=== PATIENT | male | born 1950 | race African-American/Black ===

== ENCOUNTER 2024-12-14 08:44 | Outpatient (CLI) | payer OTHER, SELFPAY ==
--- NOTE | ~2024-12-14 | PE_ITS ---
EXAMINATION: PET skull to mid thigh DATE: 12/14/2024 10:58 INDICATION: Myeloma TECHNIQUE: Blood glucose level was 91 mg/dL. 10.061 mCi of 18-fluorodeoxyglucose (18-FDG) was adminis tered i.v. Low dose computed tomography (CT) images were acquired from the base of the brain to the p roximal thighs for attenuation correction and anatomic localization. Positron emission tomography (PE T) images were acquired in the same distribution beginning 63 minutes after injection. Images includi ng fused PET/CT images were reconstructed in axial, coronal, and sagittal planes. Automated exposure control technique was employed. The dose-length product was 1135.63mGy-cm. COMPARISON: None FINDINGS: Head/neck: There is symmetric increased activity in the oral cavity, palatine tonsils, parotid glands, submandi bular glands, laryngeal muscles and ocular muscles without CT correlate, likely physiologic. No patho logically enlarged cervical lymphadenopathy or suspicious foci of increased FDG uptake in the visuali zed head or neck. Chest: Mild dependent atelectasis in the bilateral lower lobes. No suspicious pulmonary nodules, pneumonia, pulmonary edema or pleural effusion. Mild cardiomegaly. No pericardial effusion. Thoracic aorta is no rmal in caliber. No pathologically enlarged thoracic lymphadenopathy. Abdomen/pelvis/proximal thighs: Physiologic renal accumulation and excretion of FDG activity in the kidneys, bladder and along portio ns of ureters. Couple low-attenuation left renal cysts with associated photopenic defects,, each mili uring approximately 2.5-2.7 cm. There is diffuse wall thickening of the bladder. Normal degree and he terogenous pattern of increased uptake throughout the liver without radiologic correlate or dominant FDG avid lesion. The gallbladder, pancreas, spleen and bilateral adrenal glands are normal. Mild upta ke scattered throughout the bowels without radiologic correlate, also likely physiologic. No other ab normal foci of increased FDG uptake or pathologically enlarged lymphadenopathy in the abdomen, pelvis or proximal thighs. Musculoskeletal: L4-S1 instrumented anterior and posterior spinal fusion with interbody bone graft cages and bilateral vertical shahriar and pedicle screw fixation at both levels. There is no abnormal FDG uptake associated w ith a mixed lytic and sclerotic lesions at the T12, L2 and L4 vertebral bodies, at the junction of th e left acetabulum and superior pubic ramus and at the mid left humeral diaphysis. Slightly more dista lly there is a small focus of increased soft tissue uptake along the distal left triceps muscle.. The re is diffuse synovial activity about the left elbow. There are multiple small radiopaque foreign bod ies in the volar soft tissues at the elbow. IMPRESSION: 1. No abnormal FDG uptake associated with multiple lytic and sclerotic bone lesions in the lumbar and lower thoracic spine, left periacetabular region and mid left humeral diaphysis which could represen t metastatic prostate cancer or treated myeloma. The sensitivity for prostate cancer can be low with standard PET and would consider either correlation with prior outside imaging to assess for interval change or PSMA PET which has a higher sensitivity for prostate cancer. 2. Nonspecific small focus of increased FDG uptake along the distal triceps muscle belly which is not included on the CT images. 3. Additional nonspecific diffuse increased synovial activity at the left elbow which is also not inc luded within the field of imaging on CT. Consider further evaluation with pre and postcontrast MRI wa s of the left elbow and distal upper arm to further evaluate both this and the focus of triceps activ ity. Reviewed, dictated and finalized at location A. [facility] IMPRESSION: 1. No abnormal FDG uptake associated with multiple lytic and sclerotic bone les ions in the lumbar and lower thoracic spine, left periacetabular region and mid left humeral diaphysis which could represent metastatic prostate cancer or josé ated myeloma. The sensitivity for prostate cancer can be low with standard PET and would consider either correlation with prior outside imaging to assess for interval change or PSMA PET which has a higher sensitivity for prostate cancer. 2. Nonspecific small focus of increased FDG uptake along the distal triceps mus ebony belly which is not included on the CT images. 3. Additional nonspecific diffuse increased synovial activity at the left elbow which is also not included within the field of imaging on CT. Consider further evaluation with pre and postcontrast MRI was of the left elbow and distal uppe r arm to further evaluate both this and the focus of triceps activity.
--- OUTSIDE RECORDS SUMMARY | 2024-12-14 09:14 | XMS_ITS | Clinical Summary ---
Author Organization [facility] Address [address] [place] [id number] Care Team Providers Care Nursery Attendant Name Role Phone None, Provider Primary Care Provider Unavaila ble Encounters Date Type Department Care Team Description 11/17/2024 Telephone [facility], [address] [phone] Vilma, ProviderMD Schedule Test 11/16/2024 Orders Only [facility], [address] [phone] Aaliyah Lara PA 09/25/2024 2:06 PM WELDER EXPLOSION - 09/25/2024 11:59 PM WELDER EXPLOSION Hospital Encounter [facility] [address] [place] [id number] George Moore MD Discharge Disposition: Home or Self Care (Routine Discharge) 09/25/2024 Orders Only [facility] [address] [place] [place], [place] [id number] George Moore MD from Last 3 Months Social History Tobacco Use Types Packs/Day Years Used Date Smoking Tobacco: Never Assessed Sex and Gender Information Value Date Recorded Sex Assigned at Not on file Legal Sex Male 2:04 PM WELDER EXPLOSION Gender Identity Not on file Sexual Orientation Not on file Plan of Treatment Upcoming Encounters Date Type Department Care Team (Late st Contact Info) Description 01/17/2025 9:00 AM CDT Appointment [facility] [address] [place] [address] Aaliyah Lara PA [address] [place] [address] 02/08/2025 1:15 PM CDT Office Visit [facility] [place] [address] Christiano Mckoy MD [address] [address] Health Maintenance Due Date Last Done Comments Colorectal Cancer Screening Colonoscopy (10 Years) 1950 Pneumococcal Vaccine: 65+ Ye ars (1 of 2 - PCV) 1957 Hepatitis C 1969 DTaP, Tdap and Td Vaccines ( 1 - Tdap) 1970 Zoster Vaccines (1 of 2) 2001 RSV Immunization or 60+ Years (1 - Risk 60-74 years 1-dose series) 2011 COVID-19 Vaccine (2023-2 5 season) 2024 Influenza Adult (#1) 2024 Meningococcal B Vaccine Aged Out No l onger eligible based on patient's age to complete this topic Meningococcal Vaccine Aged Out No sandra vinod eligible based on patient's age to complete this topic RSV Immunizations Under 20 Months Aged Out No longer eligible based on patient's age to complete this topic Procedures Procedure Name Priority Date/Time Associated Diagnosis Comments MISCELLANEOUS LAB TEST Routine 4 1:45 PM WELDER EXPLOSION MISCELLANEOUS LAB TEST Routine 4 1:45 PM WELDER EXPLOSION CBC W/DIFF AUTOMATED Routine 09/25/2024 1:45 PM WELDER EXPLOSION Elevated serum immunoglobulin free light chain level Prostate cancer (CMS/HCC HHS/HCC) COMPREHENSIVE METABOLIC PANEL Routine 09/25/2024 1:45 PM WELDER EXPLOSION Elevated serum immunoglobulin free light chain level Prostate cancer (CMS/HCC HHS/HCC) LDH, LACTATE DEHYDROGENASE Routine 09/25/2024 1:45 PM WELDER EXPLOSION Elevated serum immunoglobulin free light chain level Prostate cancer (CMS/HCC HHS/HCC) PROSTATE SPECIFIC ANTIGEN,TOTAL Routine 09/25/2024 1:45 PM WELDER EXPLOSION Elevated serum immunoglobulin free light chain level Prostate cancer (CMS/HCC HHS/HCC) PROTEIN, ELECTROPHORESIS Routine 09/25/2024 1:45 PM WELDER EXPLOSION Elevated serum immunoglobulin free light chain level Prostate cancer (CMS/HCC HHS/HCC) KAPPA LAMBDA FREE RATIO (QST) Routine 09/25/2024 1:45 PM WELDER EXPLOSION Elevated serum immunoglobulin free light chain level Prostate cancer (CMS/HCC HHS/HCC) BETA 2 MICROGLOBULIN, SERUM (QST) Routine 09/25/2024 1:45 PM WELDER EXPLOSION Elevated serum immunoglobulin free light chain level Prostate cancer (CMS/HCC HHS/HCC) IMMUNOGLOBULINS IGA IGG IGM Routine 09/25/2024 1:45 PM WELDER EXPLOSION Elevated serum immunoglobulin free light chain level Prostate cancer (CMS/HCC HHS/HCC) PROTEIN ELECTROPHORESIS URINE RANDOM Routine 09/25/2024 1:45 PM WELDER EXPLOSION Elevated serum immunoglobulin free light chain level Prostate cancer (CMS/HCC HHS/HCC) from Last 3 Months Results * (ABNORMAL) KAPPA LAMBDA FREE RATIO (QST) (09/25/2024 1:45 PM WELDER EXPLOSION) KAPPA FREE LIGHT CHAIN 104.0(H) 3.3 - 19.4 mg/L 09/27/2024 11:51 PM WELDER EXPLOSION [facility] XAVIER-CHANTI LLY LAMBDA FREE LIGHT CHAIN 15.0 5.7 - 26.3 mg/L 09/27/2024 11:51 PM WELDER EXPLOSION [facility] L[facility] KAPPA/LAMBDA FREE 6.93(H) 0.26 - 1.65 09/27/2024 11:51 PM WELDER EXPLOSION [facility] Comment: Free kappa/lambda ratio in serum of normal individuals is 0.26-1.65. Excess production of free kappa or lambda chains can alter the ratio. Monoclonal free light chains are found in the serum of patients with multiple myeloma, Waldenstrom's macroglobulinemia, mu-heavy chain disease, primary amyloidosis, light chain deposition disease, monoclonal gammopathy of undetermined significance, and lymphoproliferative disorders. Measurement of free light chain concen- tration in serum is useful for diagnosis, prognosis, monitoring disease activity and following response to therapy of these disorders. Test Performed by [employer], [employer] [facility], [address] [place] [address] Eric Stewart M.D., Ph.D., Director of Laboratories , [facility] [id number] 09/25/2024 1:45 PM WELDER EXPLOSION us George Moore MD LABORATORY Final Result Performing Organization Address City/[facility]/ZIP Co de Phone Number [employer] [place] [id number] [place], [place] , [place] [phone] * PROTEIN ELECTROPHORESIS URINE RANDOM (09/25/2024 1:45 PM WELDER EXPLOSION) Pathologist [facility] PROTEIN URINE TOTAL RANDOM 11.8 <12.0 MG/DL 09/27/2024 1:48 PM WELDER EXPLOSION [facility] INTERPRETATION THIS URINE PEP WAS INTERPRETED BY 09/29/2024 8:30 AM WELDER EXPLOSION [facility] Comment: DR YONATHAN DAVALOS MD NO SIGNIFICANT RANDOM PROTEINURIA. THERE IS A TRACE OF ALBUMIN ON ELECTROPHORESIS. BENCE VELEZ PROTEIN IS NOT DETECTED. URINE SPECIMEN / Unknown 09/25/2024 1:45 PM WELDER EXPLOSION us George Moore MD URINE ORDERABLES Final Result [facility] [address] [place] [address], [place] [phone] [id number] * MISCELLANEOUS LAB TEST (09/25/2024 1:45 PM WELDER EXPLOSION) Only the most recent of2 resultswithin the time period is included. Pathologist [facility] TEST NAME: IMMUNOFIXATION URINE TEST 213 09/27/2024 3:42 PM WELDER EXPLOSION [facility] SPECIMEN TYPE URINE FROZEN 3:42 PM WELDER EXPLOSION [facility] TEST RESULT: Flexitest 1 10/03/2024 6:45 PM WELDER EXPLOSION [employer] [facility] Comment: Flexitest 1 Immunofixation, Urine NAVARRO Interpretation * Abnormal free kappa light chains are present. Test Performed by [employer], [employer] [facility], [address] [place] [address] Eric Stewart M.D., Ph.D., Director of Laboratories , [facility] [id number] 09/25/2024 1:45 PM WELDER EXPLOSION George Moore MD LABORATORY Final Result Performing Organization Address City/[facility]/ZIP Co de Phone Number [employer] [address] [address], [place] [phone] [facility] [address] [place] [id number], [place] * PROSTATE SPECIFIC ANTIGEN,TOTAL (09/25/2024 1:45 PM WELDER EXPLOSION) PSA 0.18 <4.00 NG/ML 09/25/2024 8:05 PM WELDER EXPLOSION [facility] Comment: Test was performed using the Siemens method. Results obtained with other assay methods or kits cannot be used interchangeably with results obtained by the Siemens method. 09/25/2024 1:45 PM WELDER EXPLOSION George Moore MD LABORATORY Final Result [facility] [address] [place] [address], [place] [phone] * (ABNORMAL) COMPREHENSIVE METABOLIC PANEL (09/25/2024 1:45 PM WELDER EXPLOSION) GLUCOSE 88 70 - 99 MG/DL 09/25/2024 3:03 PM WELDER EXPLOSION [facility] BUN 28(H) 7 - 18 MG/DL 09/25/2024 3:03 PM [facility] CREATININE S/P/B 1.55(H) 0.50 - 1.20 MG/DL 09/25/2024 3:03 PM [facility] SODIUM S/P/B 140 136 - 145 MMOL/L 09/25/2024 3:03 PM [facility] POTASSIUM S/P/B 4.2 3.5 - 5.1 MMOL/L 09/25/2024 3:03 PM [facility] CHLORIDE S/P/B 103 100 - 108 MMOL/L 09/25/2024 3:03 PM [facility] CO2 32.7(H) 21.0 - 32.0 MMOL/L 09/25/2024 3:03 PM [facility] CALCIUM S/P/B 8.8 8.5 - 10.1 MG/DL 09/25/2024 3:03 PM [facility] BILIRUBIN TOTAL S/P/B 0.5 0.2 - 1.2 MG/DL 09/25/2024 3:03 PM [facility] Comment: THIS ASSAY IS NOT RECOMMENDED FOR PATIENTS UNDERGOING TREATMENT WITH ELTROMBOPAG DUE TO THE POTENTIAL FOR FALSELY ELEVATED RESULTS. TOTAL PROTEIN S/P/B 6.9 6.4 - 8.2 G/DL 09/25/2024 3:03 PM [facility] ALBUMIN S/P/B 3.9 3.4 - 5.0 G/DL 09/25/2024 3:03 PM [facility] AST 25 15 - 37 U/L 09/25/2024 3:03 PM [facility] ALT 29 16 - 60 U/L 09/25/2024 3:03 PM [facility] ALKALINE PHOSPHATASE S/P/B 111 50 - 136 U/L 09/25/2024 3:03 PM [facility] ANION GAP 4.3(L) 5.0 - 15.0 MMOL/L 09/25/2024 3:03 PM WELDER EXPLOSION [facility] BUN CREATININE RATIO 18.1 6 - 26 09/25/2024 3:03 PM WELDER EXPLOSION [facility] A/G RATIO 1.3 1.0 - 2.5 RATIO 09/25/2024 3:03 PM WELDER EXPLOSION [facility] GFR ESTIMATE 47(L) >90 ML/MIN/1.7 3 M2 09/25/2024 3:03 PM WELDER EXPLOSION [facility] Comment: NOTE: eGFR is not calculated for patients <18 years of age. This is an estimated GFR calculation using the new CKD EPI creatinine equation without race and so does not require a correction factor for race. This estimated GFR should not be used for calculating drug doses. 09/25/2024 1:45 PM WELDER EXPLOSION us George Moore MD LABORATORY Final Result Performing Organization Address City/[facility]/ZIP Co de Phone Number [facility] [address] [place] [address], * LDH, LACTATE DEHYDROGENASE (09/25/2024 1:45 PM WELDER EXPLOSION) LDH 237 87 - 241 UNITS/L 09/25/2024 8:05 PM WELDER EXPLOSION [facility] 09/25/2024 1:45 PM WELDER EXPLOSION us George Moore MD LABORATORY Final Result Performing Organization Address City/[facility]/ZIP Co de Phone Number [facility] [address] [place] [address], [place] [phone] * (ABNORMAL) BETA 2 MICROGLOBULIN, SERUM (QST) (09/25/2024 1:45 PM WELDER EXPLOSION) BETA-2 MICROGLOBULIN 2.85(H) <=2.51 mg/L 09/28/2024 1:36 PM WELDER EXPLOSION [employer] [facility] Comment: Test Performed by Perez [facility], [employer] [facility], [address] [place], [place] Eric Stewart M.D., Ph.D., Director of Laboratories , [facility] [id number] 09/25/2024 1:45 PM WELDER EXPLOSION George Moore MD LABORATORY Final Result [facility] [address] [place], [place] , * (ABNORMAL) CBC W/DIFF AUTOMATED (09/25/2024 1:45 PM WELDER EXPLOSION) WBC 3.38(L) 4.50 - 11.00 x10'3/uL 09/25/2024 2:35 PM WELDER EXPLOSION [facility] RBC 4.68 4.50 - 5.90 x10'6/uL 09/25/2024 2:35 PM WELDER EXPLOSION [facility] HGB 13.5(L) 14.0 - 18.0 G/DL 09/25/2024 2:35 PM WELDER EXPLOSION [facility] HCT 42.5(L) 43.0 - 54.0 % 09/25/2024 2:35 PM WELDER EXPLOSION [facility] MCV 90.8 80.0 - 100.0 FL 09/25/2024 2:35 PM WELDER EXPLOSION [facility] MCH 28.8 26.0 - 34.0 PG 09/25/2024 2:35 PM WELDER EXPLOSION [facility] MCHC 31.8 31.0 - 37.0 G/DL 09/25/2024 2:35 PM WELDER EXPLOSION [facility] RDW 14.0 11.6 - 14.8 % 09/25/2024 2:35 PM WELDER EXPLOSION [facility] PLT 124(L) 130 - 400 x10'3/uL 09/25/2024 2:35 PM WELDER EXPLOSION [facility] MPV 13.0(H) 7.0 - 12.0 FL 09/25/2024 2:35 PM [facility] CBC COMMENT AUTOMATED RBC MORPHOLOGY AND PLATELET EVALUATION NORMAL 09/25/2024 2:35 PM [facility] NEUTROPHILS % 37.9(L) 40.0 - 74.0 % 09/25/2024 2:35 PM [facility] LYMPHOCYTES % 42.0 14.0 - 46.0 % 09/25/2024 2:35 PM [facility] MONOCYTES % 14.2(H) 4.0 - 13.0 % 09/25/2024 2:35 PM [facility] EOSINOPHILS 4.7 0.0 - 7.0 % 09/25/2024 2:35 PM [facility] BASOPHILS 0.9 0.0 - 3.0 % 09/25/2024 2:35 PM [facility] IMMATURE GRANS % 0.3 0.0 - 0.43 % 09/25/2024 2:35 PM [facility] NRBC % 0.0 % 09/25/2024 2:35 PM [facility] ABS. NEUTROPHILS TOTAL 1.28(L) 1.69 - 7.81 x10'3/uL 09/25/2024 2:35 PM [facility] ABS. LYMPHOCYTES 1.42 0.21 - 5.42 x10'3/uL 09/25/2024 2:35 PM [facility] ABS. MONOCYTES 0.48 0.04 - 1.37 x10'3/uL 09/25/2024 2:35 PM [facility] ABS. EOSINOPHILS 0.16 0.00 - 0.68 x10'3/uL 09/25/2024 2:35 PM [facility] ABS. BASOPHILS 0.03 0.00 - 0.08 x10'3/uL 09/25/2024 2:35 PM [facility] ABS. IMMATURE GRANULOCYTES 0.01 0.00 - 0.06 x10'3/uL 09/25/2024 2:35 PM WELDER EXPLOSION [facility] ABS. NUCLEATED RBC'S 0.00 0.00 - 0.01 x10'3/uL 09/25/2024 2:35 PM WELDER EXPLOSION [facility] 09/25/2024 1:45 PM WELDER EXPLOSION George Moore MD LABORATORY Final Result [facility] [address] [facility] [place] [address], [place] * PROTEIN, ELECTROPHORESIS (09/25/2024 1:45 PM WELDER EXPLOSION) TOTAL PROTEIN S/P/B 6.9 6.0 - 8.3 G/DL 09/27/2024 1:48 PM WELDER EXPLOSION [facility] ALBUMIN S/P/B 4.2 3.4 - 4.9 G/DL 09/27/2024 1:40 PM WELDER EXPLOSION [facility] [id number] S/P/B 0.2 0.2 - 0.4 G/DL 09/27/2024 1:40 PM WELDER EXPLOSION [facility] [id number] S/P/B 0.7 0.4 - 1.0 G/DL 09/27/2024 1:40 PM WELDER EXPLOSION [facility] BETA GLOBULIN S/P/B 0.7 0.5 - 1.2 G/DL 09/27/2024 1:40 PM WELDER EXPLOSION [facility] GAMMA GLOBULIN S/P/B 1.1 0.6 - 1.6 G/DL 09/27/2024 1:40 PM WELDER EXPLOSION [facility] ELECTROPHORESIS INTERPRETATION THIS SERUM PEP WAS INTERPRETED BY 09/29/2024 8:30 AM WELDER EXPLOSION [facility] Comment: DR YONATHAN DAVALOS MD THE TOTAL SERUM PROTEIN IS NORMAL. ELECTROPHORESIS IDENTIFIES NO QUANTITATIVE ABNORMALITIES WITHIN THE PROTEIN FRACTIONS. MONOCLONAL PROTEINS ARE NOT DETECTED. 09/25/2024 1:45 PM WELDER EXPLOSION George Moore MD LABORATORY Final Result [facility] [address] [place] [address], [place] [phone] * IMMUNOGLOBULINS IGA IGG IGM (09/25/2024 1:45 PM WELDER EXPLOSION) IGA 189 70 - 320 mg/dL 09/28/2024 1:36 PM WELDER EXPLOSION [facility] X[facility]IER-CHANT[facility] LY IGG 1,142 600 - 1,540 mg/dL 09/28/2024 1:36 PM WELDER EXPLOSION [facility] LY IGM 94 50 - 300 mg/dL 09/28/2024 1:36 PM WELDER EXPLOSION [facility] Comment: Test Performed by [employer], [employer] [facility], [address] [place] [address] Eric Stewart M.D., Ph.D., Director of Laboratories , [facility] [id number] 09/25/2024 1:45 PM WELDER EXPLOSION George Moore MD LABORATORY Final Result [employer] [id number] [place] [address], [place] [phone] from Last 3 Months Insurance MEDICAID [employer] Care Teams Nursery Attendant Relationship Specialty Start Date End Date None, Provider, PCP - General UNKNOWN PHYSICIAN SPECIALTY 09/25/24
[2024-12-14 09:28] LABS: Glucose Point of Care 91 mg/dl (65-105)
== END 2024-12-14 08:45 | disposition home or self-care (01) ==
LOC: ANHIMG 09:01
PROVIDERS: Visit Provider Physician Assistant
DX: C90.00 Multiple myeloma not having achieved remission (principal)
CPT/HCPCS: 78815; A9552

== ENCOUNTER 2025-03-14 07:44 | Outpatient (CLI) | payer OTHER, SELFPAY ==
--- NOTE | ~2025-03-14 | PE_ITS ---
EXAMINATION: PET_PETPSMAST_PT DATE: 03/14/2025 09:54 INDICATION: Prostate cancer TECHNIQUE: 5.072 mCi of Illucix Ga-68([id number]) was administered i.v. Low dose computed fani graphy (CT) images were acquired from the base of the brain to the base of the brain to the proximal thighs for attenuation correction and anatomic localization. Positron emission tomography (PET) image s were acquired in the same distribution beginning 88 minutes after injection. Images including fused PET/CT images were reconstructed in axial, coronal, and sagittal planes. Automated exposure control technique was employed. The dose-length product was 1145.25mGy-cm. COMPARISON: PET/CT dated 12/14/2024 FINDINGS: Head/neck: Typical pattern of symmetric physiologic increased activity in the lacrimal, parotid and submandibula r glands as well as along the mucosa of the nasal and oral cavities, pharynx and hypopharynx. No path ologically enlarged cervical lymphadenopathy or suspicious foci of increased uptake in the visualized head or neck. Chest: Lungs are clear with no suspicious pulmonary nodules, pneumonia, pulmonary edema or pleural effusion. Heart size is normal. No pericardial effusion. Thoracic aorta is normal in caliber. No pathologicall y enlarged or PSMA avid thoracic lymphadenopathy. Abdomen/pelvis/proximal thighs: Physiologic renal accumulation and excretion of activity in the kidneys, bladder and along portions o f ureters. Mild prostatomegaly measuring 3.9 x 3.5 cm without abnormally increased PSMA activity to s uggest residual or locally recurrent disease. Normal degree and slightly heterogenous pattern of incr eased uptake throughout the liver and spleen without radiologic correlate or dominant PSMA avid lesio n. The gallbladder, pancreas and bilateral adrenal glands are normal. Moderate uptake scattered throu ghout the bowels with typical duodenal and proximal jejunal predominance and without radiologic corre late, also likely physiologic. No other abnormal foci of increased uptake or pathologically enlarged lymphadenopathy in the abdomen, pelvis or proximal thighs. Musculoskeletal: L4-S1 instrumented anterior and posterior spinal fusion with interbody bone graft cages and bilateral vertical shahriar and pedicle screw fixation at both levels. There is no associated PSMA activity associa james with the mixed lytic and sclerotic lesions at the T12, L2 and L4 vertebral bodies, at the junctio n of the left acetabulum and superior pubic ramus and at the mid left humeral diaphysis which could r epresent treated disease. No abnormal PSMA avid bone lesions. IMPRESSION: 1. No abnormal uptake associated with the previous noted mixed lytic and sclerotic bone lesions in th e lower thoracic spine, left periacetabular region and mid left humeral diaphysis which could represe nt treated metastatic prostate cancer. 2. Mild prostatomegaly with no abnormal uptake to suggest residual/recurrent disease. Reviewed, dictated and finalized at location A. IMPRESSION: 1. No abnormal uptake associated with the previous noted mixed lytic and sclero tic bone lesions in the lower thoracic spine, left periacetabular region and mi d left humeral diaphysis which could represent treated metastatic prostate canc er. 2. Mild prostatomegaly with no abnormal uptake to suggest residual/recurrent di sease.
--- OUTSIDE RECORDS SUMMARY | 2025-03-14 07:49 | XMS_ITS | Clinical Summary ---
Author Organization [facility] Address [address] [place] [address] Care Team Providers Care Marble Cutter Name Role Phone None, Provider MD Primary Care Provider Unavaila ble Allergies Active Allergy Reactions Criticality Noted Date Comments Oxcarbazepine Unknown 02/08/2025 Medications allopurinol (ZYLOPRIM) 300 MG tablet Take 1 tablet (300 mg total) by mouth daily. Active atorvastatin (LIPITOR) 20 MG tablet Take 1 tablet (20 mg total) by mouth nightly at bedtime. Active bumetanide (BUMEX) 1 MG tablet Take 1 tablet (1 mg total) by mouth daily. Active vitamin D3 (CHOLECALCIFERO L) 25 mcg tablet Take 1 tablet (25 mcg total) by mouth daily. Active DULoxetine (CYMBALTA) 30 MG capsule Take 1 capsule (30 mg total) by mouth daily. Active fluocinonide (LIDEX) 0.05 % ointment Apply topically 2 (two) times daily. Active gabapentin (NEURONTIN) 600 MG tablet Take 1.5 tablets (900 mg total) by mouth 2 (two) times daily. Active metoprolol succinate ER (TOPROL-XL) 50 MG 24 hr tablet Take by mouth daily. Active POTASSIUM CHLORIDE ER OR Take 30 mEq by mouth 2 (two) times a day. Active Multiple Vitamins-Minera ls (PRESERVISION AREDS 2 OR) Take by mouth 2 (two) times a day. Active Active Problems No known active problems Encounters Date Type Department Care Team Description 02/08/2025 10:00 AM CDT Office Visit [facility] [address] [place] [id number] Garrison Rangel MD Consult 02/08/2025 Travel 01/17/2025 8:55 AM CDT - 01/17/2025 11:59 PM CDT Hospital Encounter 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 Gender Identity Not on file Sexual Orientation Not on file Last Filed Vital Signs Vital Sign Reading Time Taken Comments Blood Pressure 118/78 02/08/2025 9:53 AM CDT Pulse 56 02/08/2025 9:53 AM CDT Temperature - - Respiratory Rate 16 02/08/2025 9:53 AM CDT Oxygen Saturation 97% 02/08/2025 9:53 AM CDT Inhaled Oxygen Concentration - - Weight 91.6 kg (202 lb) 02/08/2025 9:53 AM CDT Height 172.7 cm (5' 8 ) 02/08/2025 9:53 AM CDT Body Mass Index 30.71 02/08/2025 9:53 AM CDT Plan of Treatment Upcoming Encounters Date Type Department Care Team (Late st Contact Info) Description 05/10/2025 9:00 AM CDT Appointment [facility] Nuclear Medicine [address] [place] [address] Erickson Cee MD [facility] [address] [place] [address] Health Maintenance Due Date Last Done Comments Colorectal Cancer Screening Colonoscopy (10 Years) 1950 Hepatitis C 1969 DTaP, Tdap and Td Vaccines ( 1 - Tdap) 1970 Pneumococcal Vaccine: 50+ Ye ars (1 of 2 - PCV) 1970 Zoster Vaccines (1 of 2) 2001 RSV Immunization or 60+ Years (1 - Risk 60-74 years 1-dose series) 2011 COVID-19 Vaccine (1 - 2023-2 5 season) 2024 Meningococcal B Vaccine Aged Out No l onger eligible based on patient's age to complete this topic Meningococcal Vaccine Aged Out No sandra vinod eligible based on patient's age to complete this topic RSV Immunizations Under 20 Months Aged Out No longer eligible based on patient's age to complete this topic Procedures Procedure Name Priority Date/Time Associated Diagnosis Comments ELECTROCARDIOGRAM (NON MIDMARK ACQUIRED) Today 02/08/2025 10:09 AM CDT Congestive heart failure, unspecified HF chronicity, unspecified heart failure type ([facility] HHS/HCC) MRI CARDIAC WWO CON Routine 01/17/2025 1 0:50 AM CDT CHF (congestive heart failure) ([facility] HHS/HCC) Pulmonary hypertension ([facility]) from Last 3 Months Results * ELECTROCARDIOGRAM (02/08/2025 10:09 AM CDT) 02/08/2025 10:0 9 AM CDT [facility] CARDIOVASCULAR - 02/13/2025 9:13 [place] [address] Test Date: 2025-02-08 Pat Name: MANAS PABLO Department: 176 Room: Gender: Male Director Of Laboratory Operations: : 1950 Requested By: GARRISON RANGEL Order Number: [id number] Reading MD: Siva Acosta Measurements Intervals [place] Rate: 56 P: 56 VA: 189 QRS: -34 QRSD: 99 T: 13 QT: 414 QTc: 400 Interpretive Statements SINUS BRADYCARDIA POSSIBLE LEFT ATRIAL ENLARGEMENT LEFT AXIS DEVIATION POSSIBLE LEFT VENTRICULAR HYPERTROPHY Procedure Note Siva Acosta MD - 02/13/2025 [place] [address] Test Date: 2025-02-08 Pat Name: MANAS PABLO Department: 176 Room: Gender: Male Director Of Laboratory Operations: : 1950 Requested By: GARRISON RANGEL Order Number: [id number] Reading MD: Siva Acosta Measurements Intervals [place] Rate: 56 P: 56 VA: 189 QRS: -34 QRSD: 99 T: 13 QT: 414 QTc: 400 Interpretive Statements SINUS BRADYCARDIA POSSIBLE LEFT ATRIAL ENLARGEMENT LEFT AXIS DEVIATION POSSIBLE LEFT VENTRICULAR HYPERTROPHY Garrison Rangel MD PROCEDURES-ORDERABLE NO CHARGE Final Result [facility] * MRI CARDIAC WWO CON (01/17/2025 10:50 AM CDT) Anatomical Region Laterality Modality Cardiac Magnetic Resonan ce 01/19/2025 10:4 8 AM CDT Impressions 01/19/2025 11:09 AM CDT IMPRESSION: 1. Mild concentric left ventricular hypertrophy. 2. Mild hypokinesis, septum of left ventricle. 3. Mild pulmonic regurgitation. 4. Mild mitral regurgitation. 5. Probable prominent hypertension. 6. Ascending thoracic aortic aneurysm, 4 cm. 7. No evidence of myocardial scarring/fibrosis/infiltrative cardiomyopathy. 8. No evidence of significant left to right shunting. Qp/Qs RATIO: 1.06. If high clinical suspicion, may correlate with echocardiography bubble study for shunting. Ordered By: AMY LARA Interpreted By: Danilo Barrientos MD, 01/19/2025 10:48 AM Narrative 01/19/2025 11:09 AM CDT [address] [address] Exam: Cardiac MRI with and without contrast DATE: 01/17/2025 Clinical history: Congestive heart failure. Pulmonary hypertension. Technique: Magnetic resonance images of the heart were obtained before and after 20 mL MultiHance intravenous gadolinium according to cardiomyopathy protocol. Findings: I. MORPHOLOGY: ANATOMIC STRUCTURE: Normal left atrial chamber size. Normal left ventricular chamber size. Mild concentric left ventricular hypertrophy. Normal right atrial chamber size. Normal right ventricular chamber size. No large defect in the septum of atrium or ventricle. No large defect in the septum of atrium or ventricle. Normal pericardium. No significant pericardial effusion. LEFT VENTRICLE FUNCTION: Wall motion, base: Hypokinesis, septum. Wall motion, mid ventricle: Normal Wall motion, apex: Normal FLOW: Aortic valve: No dephasing jet. Mitral valve: Dephasing regurgitant jet. Pulmonic valve: Dephasing regurgitant jet. Tricuspid valve: No dephasing jet. DELAYED ENHANCEMENT: Base: Normal Mid ventricle: Normal [place]: Normal II. QUANTITATIVE DATA: Quantitative data index through body surface area of 2.07 m^2. Greater or equal to 35 years old Template (Male): LEFT VENTRICLE: (gated, segmented SSFP short axis cine images.): Ejection fraction 45 % (59 to 83). Stroke-volume 59 mL (68 to 144). Cardiac output 2.9 L/min. Cardiac index 1.4 L/m2/min. End-diastolic volume 132 mL (99 to 199). End-diastolic volume index 64 mL/m2 (53 to 97). End-systolic volume 73 mL (17 to 69). End-systolic volume index 35 ml/m2 (10 to 34). RIGHT VENTRICLE: (gated, segmented SSFP short axis cine images.): Ejection fraction of 49 % (49 to 73). Stroke-volume 80 mL (74 to 146). End-diastolic volume 161 mL (125 to 237). End-diastolic volume index 78 mL/m2 (67 to 111). End-systolic volume 81 mL (37 to 105). End-systolic volume index 39 ml/m2 (20 to 48). AORTIC VALVE FLOW DATA: Peak velocity: 1.34 m/sec Pressure gradient: 7.2 mmHg Forward flow: 75 mL Reverse flow: 2.6 mL Regurgitant fraction: 4.8 % Net forward flow (Qs): 71 PULMONIC VALVE FLOW DATA: Peak velocity: 0.9 m/sec Pressure gradient: 2.8 mmHg Forward flow: 74 mL Reverse flow: 2.5 mL Regurgitant fraction: 3.3 % Net forward flow (Qp): 72 Qp/Qs RATIO: 1.06 III. OTHER FINDINGS: Ascending thoracic aorta, 4 cm. Main pulmonary artery, 3.3 cm. Probable renal cysts (no further follow-up recommended according consensus guidelines). Procedure Note Danilo Barrientos MD - 01/19/2025 [facility] [address] [place], [place] [address] Exam: Cardiac MRI with and without contrast DATE: 01/17/2025 Clinical history: Congestive heart failure. Pulmonary hypertension. Technique: Magnetic resonance images of the heart were obtained before andafter 20 mL MultiHance intravenous gadolinium according to cardiomyopathyprotocol. Findings: I. MORPHOLOGY: ANATOMIC STRUCTURE: Normal left atrial chamber size. Normal left ventricular chamber size.Mild concentric left ventricular hypertrophy. Normal right atrial chambersize. Normal right ventricular chamber size. No large defect in the septumof atrium or ventricle. No large defect in the septum of atrium or ventricle. Normal pericardium.No significant pericardial effusion. LEFT VENTRICLE FUNCTION: Wall motion, base: Hypokinesis, septum. Wall motion, mid ventricle: Normal Wall motion, apex: Normal FLOW: Aortic valve: No dephasing jet. Mitral valve: Dephasing regurgitant jet. Pulmonic valve: Dephasing regurgitant jet. Tricuspid valve: No dephasing jet. DELAYED ENHANCEMENT: Base: Normal Mid ventricle: Normal [place]: Normal II. QUANTITATIVE DATA: Quantitative data index through body surface area of 2.07 m^2. Greater or equal to 35 years old Template (Male): LEFT VENTRICLE: (gated, segmented SSFP short axis cine images.): Ejection fraction 45 % (59 to 83). Stroke-volume 59 mL (68 to 144). Cardiac output 2.9 L/min. Cardiac index 1.4 L/m2/min. End-diastolic volume 132 mL (99 to 199). End-diastolic volume index 64 mL/m2 (53 to 97). End-systolic volume 73 mL (17 to 69). End-systolic volume index 35 ml/m2 (10 to 34). RIGHT VENTRICLE: (gated, segmented SSFP short axis cine images.): Ejection fraction of 49 % (49 to 73). Stroke-volume 80 mL (74 to 146). End-diastolic volume 161 mL (125 to 237). End-diastolic volume index 78 mL/m2 (67 to 111). End-systolic volume 81 mL (37 to 105). End-systolic volume index 39 ml/m2 (20 to 48). AORTIC VALVE FLOW DATA: Peak velocity: 1.34 m/sec Pressure gradient: 7.2 mmHg Forward flow: 75 mL Reverse flow: 2.6 mL Regurgitant fraction: 4.8 % Net forward flow (Qs): 71 PULMONIC VALVE FLOW DATA: Peak velocity: 0.9 m/sec Pressure gradient: 2.8 mmHg Forward flow: 74 mL Reverse flow: 2.5 mL Regurgitant fraction: 3.3 % Net forward flow (Qp): 72 Qp/Qs RATIO: 1.06 III. OTHER FINDINGS: Ascending thoracic aorta, 4 cm. Main pulmonary artery, 3.3 cm. Probablerenal cysts (no further follow-up recommended according consensusguidelines). IMPRESSION: 1. Mild concentric left ventricular hypertrophy. 2. Mild hypokinesis, septum of left ventricle. 3. Mild pulmonic regurgitation. 4. Mild mitral regurgitation. 5. Probable prominent hypertension. 6. Ascending thoracic aortic aneurysm, 4 cm. 7. No evidence of myocardial scarring/fibrosis/infiltrativecardiomyopathy. 8. No evidence of significant left to right shunting. Qp/Qs RATIO: 1.06.If high clinical suspicion, may correlate with echocardiography bubblestudy for shunting. Ordered By: AMY LARA Interpreted By: Danilo Barrientos MD, 01/19/2025 10:48 AM Amy JULES MRI Final Re sult from Last 3 Months Insurance [id number] Care Teams Marble Cutter Relationship Specialty Start Date End Date None, Provider, PCP - General UNKNOWN PHYSICIAN SPECIALTY 09/25/24
--- OUTSIDE RECORDS SUMMARY | 2025-03-14 07:49 | XMS_ITS | Clinical Summary ---
Author Organization [facility] Address [address] [place] [address] Phone Care Team Providers Care Counter Intelligence Agent Name Role Phone Provider, Not On File Primary Care Provider Unav ailable George Moore MD Unavailable Allergies Active Allergy Reactions Criticality Noted Date Comments Oxcarbazepine Unknown 09/25/2024 Medications allopurinol (ZYLOPRIM) 300 MG Tablet Take 300 mg by mouth daily. Active atorvastatin (LIPITOR) 20 MG Tablet Take 20 mg by mouth daily. Active bumetanide (BUMEX) 1 MG Tablet Take 1 mg by mouth daily. Active VITAMIN D PO Take by mouth. Ac tive DULoxetine (CYMBALTA) [address] Particles Take 30 mg by mouth daily. Active fluocinonide (LIDEX) 0.05 % Cream Apply 2 times daily. Application Site: affected area (Description and Location) Active gabapentin (NEURONTIN) 600 MG Tablet Take 900 mg by mouth 2 times daily. Active metoprolol Succinate (TOPROL-XL) 50 MG TABLET SR 24 HR Take 100 mg by mouth daily. Active Omeprazole 20 MG Tablet Delayed Response Take 40 mg by mouth daily. Active potassium chloride (MICRO-K) 10 MEQ Capsule CR Take 30 mEq by mouth 2 times daily. Active Multiple Vitamins-Minera ls (PRESERVISION AREDS 2 PO) Take by mouth. Act carley Active Problems No known active problems Encounters Date Type Department Care Team Description 01/19/2025 Telephone [facility] [address] [place] [address] George Moore MD from Last 3 Months Family History Relation Name Status Comments Father Mother Social History Tobacco Use Types Packs/Day Years Used Date Smoking Tobacco: Never Smokeless Tobacco: Never Tobacco Cessation:Counseling Given: No Alcohol Use Standard Drinks/Week Comments Not Currently 0 (1 standard drink = 0.6 oz pur e alcohol) Sex and Gender Information Value Date Recorded Sex Assigned at Not on file Legal Sex Male 9:28 AM CDT Gender Identity Not on file Sexual Orientation Not on file Last Filed Vital Signs Vital Sign Reading Time Taken Comments Blood Pressure 122/76 11/13/2024 10:48 AM ARTIFICIAL FLY TIER Pulse 58 11/13/2024 10:48 AM ARTIFICIAL FLY TIER Temperature 36.9 C (98.4 F) 11/13/2024 10:48 AM ARTIFICIAL FLY TIER Respiratory Rate - - Oxygen Saturation 98% 11/13/2024 10:48 AM ARTIFICIAL FLY TIER Inhaled Oxygen Concentration - - Weight 89.6 kg (197 lb 9.6 oz) 11/13/2024 10:48 AM ARTIFICIAL FLY TIER Height 172.7 cm (5' 8 ) 12/11/2024 10:42 AM ARTIFICIAL FLY TIER Body Mass Index 30.04 09/25/2024 11:50 AM ARTIFICIAL FLY TIER Plan of Treatment Upcoming Encounters Date Type Department Care Team (Late st Contact Info) Description 03/19/2025 9:30 AM CDT Office Visit [facility] [address] [place] [phone] George Moore MD [address] [place] [phone] Health Maintenance Due Date Last Done Comments Hepatitis C Virus (HCV) Screening 1950 TdaP Immunization 1950 SARS-COV-2 Immunization (#1) 1956 Pneumococcal Immunization (5 0+ years) (1 of 2 - PCV) 1970 Zoster Immunization (1 of 2) 1970 Colonoscopy 1996 Colorectal Cancer Screening 1996 Cologuard 2001 Immunochemical Fecal Occult Blood 2001 Influenza Immunization (Seas on Ended) 2025 Respiratory Syncytial Virus (RSV) Immunization (Adult) (1 - 1-dose 75+ series) 2026 Hepatitis B Immunization Aged Out No longer eligible based on patient's age to complete this topic Meningococcal Immunization (ACWY) Aged Out No longer eligible based on patient's age to complete this topic Rotavirus Immunization Aged Out No lo nger eligible based on patient's age to complete this topic Insurance [facility] Care Teams Counter Intelligence Agent Relationship Specialty Start Date End Date Provider, Not On File [place] PCP - General 09/27/24 George Moore MD [address] [place] [address] [address] [place] [address] Consulting Physician Oncology 02/02/25
== END 2025-03-14 07:45 | disposition home or self-care (01) ==
PROVIDERS: Visit Provider Physician Assistant
DX: C61 Malignant neoplasm of prostate (principal)
CPT/HCPCS: 78815; A9596

== ENCOUNTER 2025-05-15 00:07 | Day surgery (SDC) | payer OTHER, SELFPAY ==
[2025-05-14 09:24] VITALS: BMI 30.2
--- NOTE | ~2025-05-15 | BM_ITS ---
EXAMINATION: CCL bone marrow asp w bx diag ORDER COMPLETED DATE: 05/15/2025 10:19 INDICATION: Multiple myeloma and bone lesions TECHNIQUE: A time-out was performed to verify the patient's name, date of , and procedure to b e performed. The procedure including the risks and benefits was discussed with the patient. Risks dis cussed included bleeding, infection, nerve injury and allergic reaction. The patient understood the r isks and agreed to proceed. The skin overlying the right posterior iliac spine was prepped and draped in usual sterile fashion. Anesthetic was administered with 1% lidocaine subcutaneously. Moderate co nscious sedation was achieved with 50 mcg fentanyl IV and 1 mg of Versed IV. An 11 gauge needle was i nserted into the right ilium with fluoroscopic guidance. Bone marrow was aspirated. An 8 gauge needle was then inserted into the right ilium with fluoroscopic guidance. A core bone marrow biopsy was obt ained. The needle was removed and the entry site was cleaned and dressed. There were no immediate co mplications. A total of 15 fluoroscopic images were recorded. Fluoroscopy exposure time was 0.1 minut es. Total DAP was 261 mGycm^2. FINDINGS: Real-time fluoroscopy demonstrates the biopsy needle tip overlying the right posterior arpita c spine. IMPRESSION: 1. Successful fluoroscopic guided bone marrow aspiration. 2. Successful fluoroscopic guided bone marrow biopsy. Reviewed, dictated and finalized at location A.
--- OUTSIDE RECORDS SUMMARY | 2025-05-15 00:10 | XMS_ITS | Clinical Summary ---
Author Organization [facility] Address [address], [address] [place] [address] Phone Care Team Providers Care Instructional Design Consultant Name Role Phone Provider, Not On File Primary Care Provider Unav danishaable George Moore MD Unavailable Allergies Active Allergy [...] 2 PO) Take by mouth. Act carley Vitamin D3 1000 UNIT Tablet Take 25 mcg by mouth. Active Active Problems No known active problems Encounters Date Type Department Care Team Description 03/20/2025 Telephone [facility] [address] [place] [address] George Moore MD 03/19/2025 11:00 AM CDT Clinical Support [facility] [place] [address] [phone] Nurse, Kerry Fleming Prostate cancer (HCC) (Primary Dx) 03/19/2025 9:30 AM CDT Office Visit [facility] [place] [address] [place] [address] George Moore MD Prostate cancer (HCC) (Primary Dx); Bence Juarez protein; Anemia, unspecified type; Thrombocytopenia (HCC); Elevated serum immunoglobulin free light chain level; Bone lesion 03/19/2025 Travel from Last 3 Months Family History Relation [...] Sign Reading Time Taken Comments Blood Pressure 120/62 03/19/2025 9:58 AM CDT Pulse 60 03/19/2025 9:58 AM CDT Temperature 36.5 C (97.7 F) 03/19/2025 9:58 AM CDT Respiratory Rate - - Oxygen Saturation 99% 03/19/2025 9:58 AM CDT Inhaled Oxygen Concentration - - Weight 92.1 kg (203 lb) 03/19/2025 9:58 AM CDT Height 172.7 cm (5' 8) 03/19/2025 9:58 AM CDT Body Mass Index 30.87 03/19/2025 9:58 AM CDT Plan of Treatment Upcoming Encounters Date Type Department Care Team (Late st Contact Info) Description 05/21/2025 11:00 AM CDT Office Visit [facility] [place] [address] [phone] George Moore MD [address] [place] [phone] Health Maintenance Due Date Last Done Comments Hepatitis C Virus (HCV) Screening 1950 TdaP Immunization 1950 SARS-COV-2 Immunization (#1) 1956 Pneumococcal Immunization (5 0+ years) (1 of 2 - PCV) 1970 Zoster Immunization (1 of 2) 1970 Cologuard 1996 Colonoscopy 1996 Colorectal Cancer Screening 1996 Immunochemical Fecal Occult Blood 1996 Influenza Immunization (#1) 2025 Respiratory Syncytial Virus (RSV) Immunization (Adult) (1 - 1-dose 75+ series) 2026 Hepatitis B Immunization Aged Out No longer eligible based on patient's age to complete this topic Human Papillomavirus (HPV) Immunization Aged Out No longer eligible b ased on patient's age to complete this topic Meningococcal Immunization (ACWY) Aged Out No longer eligible based on patient's age to complete this topic Rotavirus Immunization Aged Out No lo nger eligible based on patient's age to complete this topic Procedures Procedure Name Priority Date/Time Associated Diagnosis Comments RANDOM UR PROTEIN ELECTROPHORESIS Routine 03/19/2025 11:00 AM CDT Prostate cancer (HCC) Bence Juarez protein Anemia, unspecified type Thrombocytopenia (HCC) Elevated serum immunoglobulin free light chain level IMMUNOFIXATION, URINE [place] [id number] Routine 03/19/2025 11:00 AM CDT Prostate cancer (HCC) Bence Juarez protein Anemia, unspecified type Thrombocytopenia (HCC) Elevated serum immunoglobulin free light chain level COMPLETE BLOOD COUNT (CBC) WITH DIFF Routine 03/19/2025 11:00 AM CDT Prostate cancer (HCC) Bence Juarez protein Anemia, unspecified type Thrombocytopenia (HCC) Elevated serum immunoglobulin free light chain level CMP (COMPREHENSIVE METABOLIC PANEL) Routine 03/19/2025 11:00 AM CDT Prostate cancer (HCC) Bence Juarez protein Anemia, unspecified type Thrombocytopenia (HCC) Elevated serum immunoglobulin free light chain level LACTATE DEHYDROGENASE (LD) Routine 03/19/2025 11:00 AM CDT Prostate cancer (HCC) Bence Juarez protein Anemia, unspecified type Thrombocytopenia (HCC) Elevated serum immunoglobulin free light chain level PSA DIAGNOSTIC,TOTAL Routine 03/19/2025 11:00 AM CDT Prostate cancer (HCC) Bence Juarez protein Anemia, unspecified type Thrombocytopenia (HCC) Elevated serum immunoglobulin free light chain level ELECTROPHORESIS W/ TOTAL PROTEIN SERUM Routine 03/19/2025 11:00 AM CDT Prostate cancer (HCC) Bence Juarez protein Anemia, unspecified type Thrombocytopenia (HCC) Elevated serum immunoglobulin free light chain level IMMUNOFIXATION, SERUM [place] Routine 03/19/2025 11:00 AM CDT Prostate cancer (HCC) Bence Juarez protein Anemia, unspecified type Thrombocytopenia (HCC) Elevated serum immunoglobulin free light chain level SERUM FREE LIGHT CHAINS, [place] Routine 03/19/2025 11:00 AM CDT Prostate cancer (HCC) Bence Juarez protein Anemia, unspecified type Thrombocytopenia (HCC) Elevated serum immunoglobulin free light chain level IMMUNOGLOBULIN IGA, IGG & IGM QUANT Routine 03/19/2025 11:00 AM CDT Prostate cancer (HCC) Bence Juarez protein Anemia, unspecified type Thrombocytopenia (HCC) Elevated serum immunoglobulin free light chain level from Last 3 Months Results * (ABNORMAL) SERUM FREE LIGHT [place]AINS, [place] (03/19/2025 11:00 AM CDT) FREE KAPPA LT CHAINS 261.8(H) 2.9 - 20.7 mg/L [facility] FREE LAMBDA LT CHAINS 19.4 4.2 - 27.6 mg/L [facility] KAPPA/LAMBDA RATIO 13.49(H) 0.22 - 1.74 [facility] Blood 03/19/2025 11:0 0 AM CDT [facility] - 03/21/2025 2:38 PM CDT Release to patient->Immediate us George Moore MD LAB SEND OUTS Final Result [facility] [address] [place] [address], [place] [phone] * IMMUNOFIXATION, SERUM [place] (03/19/2025 11:00 AM CDT) Pathologist [facility] IMMUNOFIXATION RESULT, SERUM COMMENT [facility] Comment:NO MONOCLONALITY DET ECTED. 03/19/2025 11:0 0 AM CDT Narrative [facility] - 03/23/2025 3:08 PM CDT TESTING PERFORMED AT: [] [facility], [address] [place] [address], [address], PHONE: [phone], PRODUCT ENGINEER: DANILO GOODWIN, PHD Release to patient->Immediate us George Moore MD LAB SEND OUTS Final Result Performing Organization Address City/[facility] Co de Phone Number [facility] [address] [place] [address], [place] [phone] * (ABNORMAL) IMMUNOFIXATION, URINE [place] [id number] (03/19/2025 11:00 AM CDT) Pathologist [facility] NAVARRO INTERPRETATION :U Comment(A) [facility] Comment:Bence Juarez Protein positive; kappa type. 03/19/2025 11:0 0 AM CDT Narrative [facility] - 03/22/2025 2:09 PM CDT Testing performed at: [CB] [facility] [place], [address] [place] [address], [place], [address], , Collateral Clerk: Danilo Goodwin, PhD Release to patient->Immediate us George Moore MD LAB SEND OUTS Final Result Performing Organization Address City/[facility]/ZIP Co de Phone Number [facility] [address] [place] [address], [place] [phone] * (ABNORMAL) RANDOM UR PROTEIN ELECTROPHORESIS (03/19/2025 11:00 AM CDT) PROTEIN,TOTAL,URIN E 11.2 Not Estab. mg/dL [facility] ALBUMIN, U 41.4 % [facility] [id number]-7-[id number], U 3.0 % [facility] HYUHD-2-[id number], U 8.7 % [facility] BETA GLOBULIN, U 39.8 % [facility] GAMMA GLOBULIN, U 7.0 % CA [facility]ER [facility] MPIKE, % 16.7(H) Not Observed % [facility] PLEASE NOTE: Comment [facility] Comment: Protein electrophoresis scan will follow via computer, mail, or fermenter champagne delivery. PDF . [facility] Urine 03/19/2025 11:0 0 AM CDT [facility] - 03/22/2025 2:09 PM CDT Testing performed at: [] Lab[address], [address], , Collateral Clerk: Danilo Goodwin, PhD Release to patient->Immediate us George Moore MD URINE ORDERABLES Final Result [facility] [place] [address], * PSA DIAGNOSTIC,TOTAL (03/19/2025 11:00 AM CDT) PSA 0.17 0.00 - 4.00 ng/mL [facility] Comment: Germain Paramagnetic Particle Chemiluminescent Immunoassay Method. Standardized against the WHO standard. Blood 03/19/2025 11:0 0 AM CDT [facility] - 03/21/2025 1:21 PM CDT Release to patient->Immediate us George Moore MD CHEMISTRY ORDERABLES Final Resul t Performing Organization Address City/[facility] Co de Phone Number [facility] [address] [place] [address], * LACTATE DEHYDROGENASE (LD) (03/19/2025 11:00 AM CDT) LDH 211 140 - 271 U/L [facility] Blood 03/19/2025 11:0 0 AM CDT [facility] - 03/20/2025 3:11 PM CDT Release to patient->Immediate George Moore MD CHEMISTRY ORDERABLES Final Resul t Performing Organization Address [facility] Co de Phone Number [facility] [place] [address], [place] [phone] * IMMUNOGLOBULIN IGA, IGG & IGM QUANT (03/19/2025 11:00 AM CDT) IGG 1,145 635 - 1,741 mg/dL [facility] IGA 207 66 - 433 mg/dL [facility] IGM 103 45 - 281 mg/dL [facility] Blood 03/19/2025 11:0 0 AM CDT [facility] - 03/21/2025 2:15 PM CDT Release to patient->Immediate George Moore MD CHEMISTRY ORDERABLES Final Resul t Performing Organization Address [facility] Co de Phone Number [facility] [address] [place] [address], * ELECTROPHORESIS W/ TOTAL PROTEIN SERUM (03/19/2025 11:00 AM CDT) PROTEIN, TOTAL, SERUM 7.0 6.0 - 8.5 G/DL [facility] ALBUMIN 3.7 2.9 - 4.4 G/DL [facility] COXST-5-DACXXMFK 0.2 0.0 - 0.4 G/DL [facility] TZNJF-1-GZKSOEFW 0.8 0.4 - 1.0 G/DL [facility] BETA GLOBULIN 1.0 0.7 - 1.3 G/DL [facility] GAMMA GLOBULIN 1.3 0.4 - 1.8 G/DL [facility] M-SPIKE NOT OBSERVED NOT OBSERVED G/DL [facility] GLOBULIN, TOTAL 3.3 2.2 - 3.9 G/DL [facility] A/G RATIO 1.1 0.7 - 1.7 [facility] PLEASE NOTE: COMMENT [facility] Comment: PROTEIN ELECTROPHORESIS SCAN WILL FOLLOW VIA COMPUTER, MAIL, OR DISHWASHING MACHINE OPERATOR DELIVERY. PDF . [facility] Blood 03/19/2025 11:0 0 AM CDT Narrative [facility] - 03/21/2025 3:09 PM CDT TESTING PERFORMED AT: [CB] LAB[address], [address], PHONE: [phone], PRODUCT ENGINEER: DANILO GOODWIN, PHD Release to patient->Immediate us George Moore MD CHEMISTRY ORDERABLES Final Resul t [facility] Cancer Care [address] [place] [address], * (ABNORMAL) CMP (COMPREHENSIVE METABOLIC PANEL) (03/19/2025 11:00 AM CDT) Glucose 86 70 - 105 mg/dL [facility] Blood Urea Nitrogen 26(H) 7 - 25 mg/dL [facility] Creatinine 1.2 0.7 - 1.3 mg/dL [facility] Sodium 141 136 - 145 mEq/L [facility] Potassium 4.3 3.5 - 5.1 mEq/L [facility] Chloride 102 98 - 107 mEq/L [facility] Bicarbonate 34(H) 21 - 31 mEq/L [facility] Total Bilirubin 0.6 0.3 - 1.0 mg/dL [facility] Alk. Phosphatase 75 34 - 104 U/L [facility] Aspartate Aminotransferase 22 13 - 39 U/L [facility] Alanine Aminotransferase 17 7 - 52 U/L [facility] Total Protein 7.1 6.4 - 8.9 g/dL [facility] Albumin 4.5 3.5 - 5.7 g/dL [facility] Calcium 8.8 8.6 - 10.3 mg/dL [facility] Anion Gap 9.3 7.0 - 15.0 mEq/L [facility] Globulin 2.6 2.0 - 3.5 g/dL [facility] EGFR 64 >60 ml/min/1. 73m2 [facility] Comment: This eGFR is calculated using 2020 CKD-EPI Creatinine equation without race modifier based on the NKF-ASN task force recommendations Equation: hCFM=006*min(SCr/k,1)a*max(SCr/k,1)-1.200*0.9938Age*1.012 (if female), where SCr is serum creatinine, k is 0.7 for females and 0.9 for males, and a is -0.241 for females and -0.302 for males Blood 03/19/2025 11:0 0 AM CDT Narrative [facility] - 03/20/2025 3:11 PM CDT Release to patient->Immediate IS THE PATIENT REQUIRED TO BE FASTING FOR 8 HOURS?->No us George Moore MD CHEMISTRY ORDERABLES Final Resul t [facility] [place] [address], * (ABNORMAL) COMPLETE BLOOD COUNT (CBC) WITH DIFF (03/19/2025 11:00 AM CDT) WBC 2.8(L) 4.0 - 10.0 10*3/uL [facility] HGB 14.0 13.7 - 17.5 g/dL [facility] HCT 43.2 40.1 - 51.0 % [facility] PLT 131(L) 163 - 369 10*3/uL [facility] MPV See below 9.4 - 12.4 fL [facility] Comment:Instrument unable to provide an accurate result RBC 4.73 4.63 - 6.08 10*6/uL [facility] MCV 91 79 - 95 fL [facility] MCH 29.6 25.6 - 32.2 pg [facility] MCHC 32.4 32.2 - 36.5 g/dL [facility] RDW 13.5 11.6 - 14.4 % [facility] Absolute Neutrophil Count 748 cells/uL [facility] Absolute Seg Count 748(L) 1,440 - 6,600 cells/uL [facility] Absolute Lymph Count 1,468 760 - 4,000 cells/uL [facility] Absolute Baldwin Count 388 160 - 1,200 cells/uL [facility] Absolute Eos Count 166 0 - 300 cells/uL [facility] Segmented Neutrophils 27(L) 36 - 66 % [facility] Lymphocytes 53(H) 19 - 40 % [facility] Monocytes 14(H) 4 - 12 % [facility] Eosinophils 6(H) 0 - 3 % [facility] WBC Estimate Low [facility] Platelet Estimate Low [facility] RBC Morphology Normal [facility] Blood 03/19/2025 11:0 0 AM CDT Narrative [facility] - 03/20/2025 2:34 PM CDT Release to patient->Immediate us George Moore MD HEMATOLOGY ORDERABLES Final Resu lt [facility] [place] [address], from Last 3 Months Insurance [id number] [place] [address] [facility] Care Teams Instructional Design Consultant Relationship Specialty Start Date End Date Provider, Not On File [place] PCP - General 09/27/24 George Moore MD [address] [place] [address] [address] [place] [address] Consulting Physician Oncology 02/02/25
--- NOTE | 2025-05-15 07:30 | BM_PTH ---
PATIENT: Wilder Pablo [facility][id number] AGE/SX: 74/M ROOM: RE05/15/[address]: Lisa Gabriel : 1950 BED: DIS: 05/15/2025 SPEC #: [id number] RECD: 05/15/25 09:58 STATUS: JOSE REQ #: [id number] MAURO: 05/15/25 07:[address]: Laci Mary DEPT: [facility] Bone Marrow RECD BY: Sharri Carranza ENTERED: 05/15/25 09:58 SP TYPE: Bone Marro FRANCISCA DR: Lisa Gabriel UNKNOWN,DOCTOR Tissues: A - Bone Marrow Aspiration B - Bone Marrow Biopsy Procedures: Unstained Slides Hematoxylin and Eosin Stain Gross and Microscopic Level 4 Bone Marrow Smear Decalcification Iron Stain
--- OUTSIDE RECORDS SUMMARY | 2025-05-15 08:20 | XMS_ITS | Clinical Summary ---
Author Organization [facility] Address [address] [place] [address] Care Team Providers Care Transporter Radiology Name Role Phone None, Provider MD Primary [...] Encounters Date Type Department Care Team Description 05/10/2025 9:03 AM CDT - 05/10/2025 11:59 PM CDT Hospital Encounter [facility] Nuclear Medicine [address] [facility] [place], [place] [id number] Gian Cee MD Arrived Discharge Disposition: Home or Self Care (Routine Discharge) 05/10/2025 9:00 AM CDT - 05/10/2025 9:02 AM CDT Hospital Encounter [facility] Cardiopulmonary Services [address] [place] [address] Gian Cee MD Discharge Disposition: Home or Self Care (Routine Discharge) 05/10/2025 Travel from Last 3 Months Social History Tobacco Use Types Packs/Day Years Used Date Smoking Tobacco: Never Assessed Sex and Gender Information Value Date Recorded Sex Assigned at Male 01/17/2025 8:51 AM CDT Legal Sex Male 2:04 PM [employer] Gender Identity Not on file Sexual Orientation [...] 9:53 AM CDT Height 172.7 cm (5' 8) 02/08/2025 9:53 AM CDT Body Mass Index 30.71 02/08/2025 9:53 AM CDT Plan of Treatment Health Maintenance Due Date Last Done Comments Colorectal Cancer Screening Colonoscopy (10 Years) 1950 Hepatitis C 1969 DTaP, Tdap and Td Vaccines ( 1 - Tdap) 1970 Pneumococcal Vaccine: 50+ Ye ars (1 of 2 - PCV) 1970 Zoster Vaccines (1 of 2) 2001 RSV Immunization or 60+ Years (1 - Risk 60-74 years 1-dose series) 2011 COVID-19 Vaccine ( - 2023-2 5 season) 2024 Meningococcal B [...] Procedure Name Priority Date/Time Associated Diagnosis Comments NM PHARM NUC STRESS TEST 1DAY W TRACING Routine 05/10/2025 11:00 AM CDT Dyspnea CARDIOLOGY STRESS TEST ONLY, EXERCISE Routine 05/10/2025 9:30 AM CDT Dyspnea from Last 3 Months Results * NM PHARM NUC STRESS TEST 1 DAY W TRACING (05/10/2025 11:00 AM CDT) Anatomical Region Laterality Modality Cardiac Nuclear Medicine 05/10/2025 5:02 PM CDT Impressions 05/10/2025 5:04 PM CDT IMPRESSION: 1. No fixed or reversible defects to suggest myocardial ischemia or infarction. 2. Gated imaging reveals no focal wall motion abnormalities. The left ventricular ejection fraction = 63%. Referred By: GIAN CEE V Interpreted By: Stef Wasserman MD, 05/10/2025 5:02 PM Narrative 05/10/2025 5:04 PM CDT [address] [place]246 Myocardial imaging with Sestamibi: Rest and pharmacologic stress/SPECT/with gated imaging Date of study: 05/10/2025. Indications: 74-year-old male with dyspnea and chest pain. Radiopharmaceutical: Rest dose: 10.0 mCi Tc-99m sestamibi IV, at 0920 hours. Stress dose: 32.0 mCi Tc-99m sestamibi IV, at 1040 hours. Comparison: None. Technique: A single day protocol was performed with 2 injections of Cardiolite on the same day. Rest imaging: Standard myocardial perfusion images were obtained after resting injection of Tc-99m sestamibi. Stress imaging: Pharmacologic stress images were obtained after intravenous infusion of Lexiscan. At peak effect of the drug, Tc-99m sestamibi was injected intravenously and standard myocardial perfusion images were obtained. Findings: There are no fixed or reversible defects. Gated Tc-99m sestamibi images reveal no focal wall motion abnormalities. The left ventricular ejection fraction = 63%. TID: 1.03. Procedure Note Stef Wasserman MD - 05/10/[address] [place] [address] Myocardial imaging with Sestamibi: Rest and pharmacologicstress/SPECT/with gated imaging Date of study: 05/10/2025. Indications: 74-year-old male with dyspnea and chest pain. Radiopharmaceutical: Rest dose: 10.0 mCi Tc-99m sestamibi IV, at 0920 hours. Stress dose: 32.0 mCi Tc-99m sestamibi IV, at 1040 hours. Comparison: None. Technique: A single day protocol was performed with 2 injections of Cardiolite on the day. Rest imaging: Standard myocardial perfusion images were obtained afterresting injection of Tc-99m sestamibi. Stress imaging: Pharmacologic stress images were obtained afterintravenous infusion of Lexiscan. At peak effect of the drug, Tc-99msestamibi was injected intravenously and standard myocardial perfusionimages were obtained. Findings: There are no fixed or reversible defects. Gated Tc-99m sestamibi imagesreveal no focal wall motion abnormalities. The left ventricular ejectionfraction = 63%. TID: 1.03. IMPRESSION: 1. No fixed or reversible defects to suggest myocardial ischemia orinfarction. 2. Gated imaging reveals no focal wall motion abnormalities. The leftventricular ejection fraction = 63%. Referred By: GIAN CEE V Interpreted By: Stef Wasserman MD, 05/10/2025 5:02 PM Gian Miller MD NUC MED Final Result from Last 3 Months Insurance [employer] Care Teams Transporter Radiology Relationship Specialty Start Date End Date None, Provider, MD PCP - General UNKNOWN PHYSICIAN SPECIALTY 09/25/24
--- OUTSIDE RECORDS SUMMARY | 2025-05-15 08:20 | XMS_ITS | Clinical Summary ---
Author Organization [facility] Address [address], [address] [place] [address] Phone Care Team Providers Care Automobile Mechanic Helper Name Role Phone Provider, Not On File [...] Description 03/20/2025 Telephone [facility] [address] [place] [address] George Moore MD 03/19/2025 11:00 AM CDT Clinical Support [facility] [place] [address] [place] [phone] Nurse, Kerry Fleming Prostate cancer (HCC) (Primary Dx) 03/19/2025 9:30 AM CDT Office Visit [facility] [place] [address] [place] [address] George Moore MD Prostate cancer (HCC) (Primary [...] AM CDT Office Visit [facility] [place] [address] [place] [phone] George Moore MD [address] [place] [id number] Health Maintenance Due Date Last Done [...] free light chain level IMMUNOFIXATION, URINE [place] [id number] Routine 03/19/2025 11:00 AM CDT Prostate cancer [...] CHAINS 261.8(H) 2.9 - 20.7 mg/L [facility] FREE LAMBDA LT CHAINS 19.4 4.2 - 27.6 mg/L [facility] KAPPA/LAMBDA RATIO 13.49(H) 0.22 - 1.74 [facility] Blood 03/19/2025 11:0 0 AM CDT [facility] - 03/21/2025 2:38 PM CDT Release to patient->Immediate us George Moore MD LAB SEND OUTS Final Result CANCER MIS MANAGER [facility] [address] [place] [address], [place] [phone] * IMMUNOFIXATION, SERUM [place] (03/19/2025 11:00 AM CDT) Pathologist [facility] IMMUNOFIXATION RESULT, SERUM COMMENT CANCER MIS MANAGER [facility] Comment:NO MONOCLONALITY DET ECTED. 03/19/2025 11:0 0 AM CDT Narrative CANCER MIS MANAGER [facility] - 03/23/2025 3:08 PM CDT TESTING PERFORMED AT: [] [facility], [address] [place] [address], [address], PHONE: [phone], MEDIA PROMOTER: DANILO GOODWIN, PHD Release to patient->Immediate us George Moore MD LAB SEND OUTS Final Result Performing Organization Address City/[facility] Co de Phone Number CANCER MIS MANAGER [facility] [address] [place] [address], [place] [phone] * (ABNORMAL) IMMUNOFIXATION, URINE [place] [id number] (03/19/2025 11:00 AM CDT) Pathologist [facility] NAVARRO INTERPRETATION :U Comment(A) CAN[facility]ER MIS MANAGER [facility] Comment:Bence Juarez Protein positive; kappa type. 03/19/2025 11:0 0 AM CDT Narrative CANCER MIS MANAGER [facility] - 03/22/2025 2:09 PM CDT Testing performed at: [CB] [facility] [place], [address] [place] [address], [place], [address], , [place] Equipment Maintenance Supervisor: Danilo Goodwin, PhD Release to patient->Immediate us George Moore MD LAB SEND OUTS Final Result Performing Organization Address City/[facility]/ZIP Co de Phone Number CANCER MIS MANAGER [facility] [address] [place] [address], [place] [phone] * (ABNORMAL) RANDOM UR PROTEIN ELECTROPHORESIS (03/19/2025 11:00 AM CDT) PROTEIN,TOTAL,URIN E 11.2 Not Estab. mg/dL CANCER MIS MANAGER [facility] ALBUMIN, U 41.4 % [facility] CE [facility]TER [facility] [id number], U 3.0 % CANCER MIS MANAGER OF [facility] [id number], U 8.7 % CANCER MIS MANAGER OF [facility] BETA GLOBULIN, U 39.8 % CAN CER MIS MANAGER [facility] GAMMA GLOBULIN, U 7.0 % CA NCER MIS MANAGER [facility] MPIKE, % 16.7(H) Not Observed % CANCER MIS MANAGER [facility] PLEASE NOTE: Comment CANCER MIS MANAGER [facility] Comment: Protein electrophoresis scan will follow via computer, mail, or certified medicine aide delivery. PDF . [facility] Urine 03/19/2025 11:0 0 AM CDT [facility] - 03/22/2025 2:09 PM CDT Testing performed at: [] Lab[address], [address], , [place] Equipment Maintenance Supervisor: Danilo Goodwin, PhD Release to patient->Immediate us George Moore MD URINE ORDERABLES Final Result CANCER MIS MANAGER [facility] [place] [address], * PSA DIAGNOSTIC,TOTAL (03/19/2025 11:00 AM CDT) PSA 0.17 0.00 - 4.00 ng/mL CANCER MIS MANAGER [facility] Comment: Germain Paramagnetic Particle Chemiluminescent Immunoassay Method. Standardized against the WHO standard. Blood 03/19/2025 11:0 0 AM CDT [facility] CANCER MIS MANAGER [facility] - 03/21/2025 1:21 PM CDT Release to patient->Immediate us George Moore MD CHEMISTRY ORDERABLES Final Resul t Performing Organization Address City/[facility] Co de Phone Number CANCER MIS MANAGER [facility] of [address] [place] [address], * LACTATE DEHYDROGENASE (LD) (03/19/2025 11:00 AM CDT) LDH 211 140 - 271 U/L CANCER MIS MANAGER [facility] Blood 03/19/2025 11:0 0 AM CDT [facility] CANCER MIS MANAGER [facility] - 03/20/2025 3:11 PM CDT Release to patient->Immediate George Moore MD CHEMISTRY ORDERABLES Final Resul t Performing Organization Address [facility] Co de Phone Number CANCER MIS MANAGER [facility] [place] [address], [place] [phone] * IMMUNOGLOBULIN IGA, IGG & IGM QUANT (03/19/2025 11:00 AM CDT) IGG 1,145 635 - 1,741 mg/dL [facility] IGA 207 66 - 433 mg/dL [facility] IGM 103 45 - 281 mg/dL [facility] Blood 03/19/2025 11:0 0 AM CDT [facility] - 03/21/2025 2:15 PM CDT Release to patient->Immediate George Moore MD CHEMISTRY ORDERABLES Final Resul t Performing Organization Address [facility] Co de Phone Number CANCER MIS MANAGER [facility] [address] [place] [address], * ELECTROPHORESIS W/ TOTAL PROTEIN SERUM (03/19/2025 11:00 AM CDT) PROTEIN, TOTAL, SERUM 7.0 6.0 - 8.5 G/DL [facility] ALBUMIN 3.7 2.9 - 4.4 G/DL CANCER MIS MANAGER [facility] [id number] 0.2 0.0 - 0.4 G/DL [facility] [id number] 0.8 0.4 - 1.0 G/DL [facility] BETA GLOBULIN 1.0 0.7 - 1.3 G/DL [facility] GAMMA GLOBULIN 1.3 0.4 - 1.8 G/DL [facility] M-SPIKE NOT OBSERVED NOT OBSERVED G/DL [facility] MIS MANAGER [facility] GLOBULIN, TOTAL 3.3 2.2 - 3.9 G/DL [facility] A/G RATIO 1.1 0.7 - 1.7 [facility] PLEASE NOTE: COMMENT [facility] MIS MANAGER [facility] Comment: PROTEIN ELECTROPHORESIS SCAN WILL FOLLOW VIA COMPUTER, MAIL, OR CORRUGATED FASTENER DRIVER DELIVERY. PDF . [facility] Blood 03/19/2025 11:[address] [facility] - 03/21/2025 3:09 PM CDT TESTING PERFORMED AT: [CB] LAB[address], [address], PHONE: [phone], MEDIA PROMOTER: DANILO GOODWIN, PHD Release to patient->Immediate us George Moore MD CHEMISTRY ORDERABLES Final Resul t [facility] Cancer Care [address] [place] [address], * (ABNORMAL) CMP (COMPREHENSIVE METABOLIC PANEL) (03/19/2025 11:00 AM CDT) Glucose 86 70 - 105 mg/dL [facility] Blood Urea Nitrogen 26(H) 7 - 25 mg/dL [facility] Creatinine 1.2 0.7 - 1.3 mg/dL [facility] Sodium 141 136 - 145 mEq/L [facility] Potassium 4.3 3.5 - 5.1 mEq/L [facility] Chloride 102 98 - 107 mEq/L [facility] Bicarbonate 34(H) 21 - 31 mEq/L [facility] Total Bilirubin 0.6 0.3 - 1.0 mg/dL [facility] Alk. Phosphatase 75 34 - 104 U/L [facility] Aspartate Aminotransferase 22 13 - 39 U/L [facility] Alanine Aminotransferase 17 7 - 52 U/L [facility] Total Protein 7.1 6.4 - 8.9 g/dL [facility] Albumin 4.5 3.5 - 5.7 g/dL [facility] Calcium 8.8 8.6 - 10.3 mg/dL [facility] Anion Gap 9.3 7.0 - 15.0 mEq/L [facility] Globulin 2.6 2.0 - 3.5 g/dL [facility] EGFR 64 >60 ml/min/1. 73m2 [facility] Comment: This eGFR is calculated using 2020 CKD-EPI Creatinine equation without race modifier based on the NKF-ASN task force recommendations Equation: lRSD=207*min(SCr/k,1)a*max(SCr/k,1)-1.200*0.9938Age*1.012 (if female), where SCr is serum creatinine, k is 0.7 for females and 0.9 for males, and a is -0.241 for females and -0.302 for males Blood 03/19/2025 11:[address] [facility] - 03/20/2025 3:11 PM CDT Release to patient->Immediate IS THE PATIENT REQUIRED TO BE FASTING FOR 8 HOURS?->No us George Moore MD CHEMISTRY ORDERABLES Final Resul t CANCER MIS MANAGER [facility] [place] [address], * (ABNORMAL) COMPLETE BLOOD COUNT (CBC) WITH DIFF (03/19/2025 11:00 AM CDT) WBC 2.8(L) 4.0 - 10.0 10*3/uL CANCER MIS MANAGER [facility] HGB 14.0 13.7 - 17.5 g/dL CANCER MIS MANAGER [facility] HCT 43.2 40.1 - 51.0 % CANCER MIS MANAGER [facility] PLT 131(L) 163 - 369 10*3/uL CANCER MIS MANAGER [facility] MPV See below 9.4 - 12.4 fL CANCER MIS MANAGER [facility] Comment:Instrument unable to provide an accurate result RBC 4.73 4.63 - 6.08 10*6/uL CANCER MIS MANAGER [facility] MCV 91 79 - 95 fL CANCER MIS MANAGER [facility] MCH 29.6 25.6 - 32.2 pg CAN[facility]ER MIS MANAGER [facility] MCHC 32.4 32.2 - 36.5 g/dL CANCER MIS MANAGER [facility] RDW 13.5 11.6 - 14.4 % CANCER MIS MANAGER [facility] Absolute Neutrophil Count 748 cells/uL [facility] MIS MANAGER [facility] Absolute Seg Count 748(L) 1,440 - 6,600 cells/uL [facility] MIS MANAGER [facility] Absolute Lymph Count 1,468 760 - 4,000 cells/uL [facility] Absolute Stanton Count 388 160 - 1,200 cells/uL [facility] Absolute Eos Count 166 0 - 300 cells/uL [facility] MIS MANAGER [facility] Segmented Neutrophils 27(L) 36 - 66 % CANCER MIS MANAGER [facility] Lymphocytes 53(H) 19 - 40 % [facility] Monocytes 14(H) 4 - 12 % [facility] Eosinophils 6(H) 0 - 3 % [facility] WBC Estimate Low CANCER MIS MANAGER [facility] Platelet Estimate Low CANCER MIS MANAGER [facility] RBC Morphology Normal CANCE R MIS MANAGER [facility] Blood 03/19/2025 11:0 0 AM CDT Narrative CANCER MIS MANAGER [facility] - 03/20/2025 2:34 PM CDT Release to patient->Immediate us George Moore MD HEMATOLOGY ORDERABLES Final Resu lt CANCER MIS MANAGER [facility] [place] [address], from Last 3 Months Insurance 40 [id number] [place] [address] [facility] Care Teams Automobile Mechanic Helper Relationship Specialty Start Date End Date Provider, Not On File CO PCP - General 09/27/24 George Moore MD [address] [place] [address] [address] [place] [address] Consulting Physician Oncology 02/02/25
[2025-05-15 08:37] VITALS: BP 149/95; PULSE 61; RESP 16; TEMP 36.5; O2SAT 100
[2025-05-15 08:40] LABS: Hematocrit 46.0 % (42.0-52.0); Hemoglobin 14.4 g/dL (14.0-18.0); Immature Granulocyte Percent A 0.0 % (0-0.5); Lymphocytes Absolute Auto 1.04 K/mm3 (0.9-3.2); Mean Corpuscular HGB Conc 31.3 g/dl (32-36); Mean Corpuscular Hemoglobin 28.5 pg (26-34); Mean Corpuscular Volume 91.1 fl (80-100); Nucleated Red Blood Cells Absolute Auto 0.000 K/mm3 (0.0-0.012); Nucleated Red Blood Cells Perc 0.0 % (0.0-0.2); Platelet Count Result 141 k/mm3 (150-375); Red Blood Count 5.05 M/mm3 (4.6-6.20); White Blood Count 2.7 K/mm3 (4.5-10.0)
[2025-05-15 08:58] LABS: INR 1.0; Prothrombin Time 13.0 Seconds (11.1-14.7)
--- NOTE | 2025-05-15 09:34 | WPDMODSED ---
Moderate Sedation Note-Pt Data Patient Data Diagnosis: prostate cancer and anemia Present Complaint: anemia, concern for multiple myeloma Procedure to be performed/Plan: bone marrow biopsy Allergies Allergy/AdvReac Type Severity Reaction Status Date / Time oxcarbazepine Allergy Unknown Unknown Verified 05/14/25 09:26 Home Medications ?Medication ?Instructions ?Recorded ?Confirmed ?Type allopurinol 300 mg tablet 300 mg PO DAILY 05/14/25 05/14/25 History atorvastatin 20 mg tablet (Lipitor) 20 mg PO DAILY 05/14/25 05/14/25 History bumetanide 1 mg tablet 1 mg PO BID 05/14/25 05/14/25 History cholecalciferol (vitamin D3) 25 25 mcg PO DAILY 05/14/25 05/14/25 History mcg (1,000 unit) capsule duloxetine 60 mg capsule,delayed 60 mg PO DAILY 05/14/25 05/14/25 History release fluocinolone 0.025 % topical cream 1 applic topical TID 05/14/25 05/14/25 History gabapentin 600 mg tablet 900 mg PO BID 05/14/25 05/14/25 History potassium chloride 10 mEq 10 meq PO BID 05/14/25 05/14/25 History capsule,extended release vit C 250 mg-vit E 90 mg-zinc 40 1 tablet PO BID 05/14/25 05/14/25 History mg-copper 1 [id number] capsule ([facility] AREDS-2) Sedation/Anesthesia: No previous sedation/anesthesia problems (including family history). PMFSH Social History Social History Smoking status: Never smoker Second hand tobacco smoke exposure: No Alcohol intake: never Substance use: never Substance use type: does not use Living arrangements: incarcerated Additional living arrangements comments: [facility] Spiritual care concerns: No Mod Sed Physical Exam Physical Exam Pre Procedural Exam: Normal: Appearance, Throat, Lungs, Heart Rate and Heart Rhythm Hours since solid foods: 12 Hours since liquid intake: 12 Mallampati Classification: class II Internal Medicine - PN: Obj Da Vital Signs Vital Signs: Vital Signs - 24 hr 05/15/25 08:37 Temperature 97.7 F Pulse Rate 61 Respiratory Rate 16 Blood Pressure 149/95 H Pulse Oximetry 100 Oxygen Delivery Room Air Labs 05/15/25 08:35 Labs: Laboratory Results - last 24 hr 05/15/25 08:35 WBC 2.7 L RBC 5.05 Hgb 14.4 Hct 46.0 MCV 91.1 MCH 28.5 MCHC 31.3 L RDW 14.0 Plt Count 141 L MPV 11.9 H Immature Gran % (Auto) 0.0 Neut % (Auto) 41.7 L Lymph % (Auto) 38.4 [place] % (Auto) 13.3 H Eos % (Auto) 5.9 H Baso % (Auto) 0.7 Lymph # (Auto) 1.04 [place] # (Auto) 0.4 Eos # (Auto) 0.2 Baso # (Auto) 0.0 Abs Immat Gran (auto) 0.00 Absolute Neuts (auto) 1.1 L Absolute Nucleated RBC 0.000 Nucleated RBC % 0.0 PT 13.0 INR 1.0 ASA Classification/Sedation ASA Classification/Sedation ASA Class: III Emergent: No Risks: Risks, benefits and alternatives explained and patient/family accepted plan for sedation. Patient re-evaluated immediately prior to sedation.
[2025-05-15 10:08] VITALS: BP 138/88; PULSE 74; RESP 16; O2SAT 100
[2025-05-15 10:25] VITALS: BP 159/105; PULSE 59; RESP 17; O2SAT 100
[2025-05-15 10:35] VITALS: BP 161/111; PULSE 57; RESP 16; O2SAT 99
[2025-05-15 10:50] VITALS: BP 158/99; PULSE 61; RESP 18; TEMP 36.5; O2SAT 99
[2025-05-15 11:08] VITALS: BP 134/86; PULSE 61; RESP 16; O2SAT 99
== END 2025-05-15 11:10 | disposition home or self-care (01) ==
PROVIDERS: Referring Provider Radiology Diagnostic Radiology; Visit Provider Physician Assistant
DX: D64.9 Anemia, unspecified (principal)
CPT/HCPCS: 36415; 38222; 85025; 85610; 88305; 88311; 88313; J2250; J3010